=== PATIENT | female | born 1960 | race Caucasian/White ===

== ENCOUNTER 2019-02-20 05:48 | Day surgery (SDC) | payer MEDICAID ==
[2019-02-20] MEDS ORDERED: Povidone-Iodine 10% Soln 118.25 ML Bottle ONE (06:46)
[2019-02-20] MEDS: Nozin Nasal Sanitizer NASBOTH SCH ×3 (06:59→20:41)
[2019-02-20] MEDS: Lactated Ringers 1,000 ML IV SCH ×2 (06:59→23:50)
[2019-02-20] MEDS ORDERED: Midazolam 1 MG/ML 2 ML SDV ONE (07:29)
[2019-02-20] MEDS ORDERED: Propofol 200 MG/20 ML SDV ONE ×3 (07:29→08:49)
[2019-02-20] MEDS ORDERED: fentaNYL 100 MCG/2 ML SDV ONE (07:29)
[2019-02-20] MEDS ORDERED: ceFAZolin 2 GM in Premix Bag 1 BAG IV ONE (07:30)
[2019-02-20] MEDS ORDERED: ceFAZolin 2 GM in Sodium Chloride 0.9% 50 ML IV ONE (07:30)
[2019-02-20] MEDS ORDERED: Lactated Ringers 1,000 ML ONE (09:03)
[2019-02-20] MEDS ORDERED: Sodium Chloride 0.9% 1,000 ML IV SCH (09:30)
[2019-02-20] MEDS ORDERED: Acetaminophen 325 MG Tab PO PRN (09:30)
[2019-02-20] MEDS ORDERED: Docusate Sodium 100 MG Cap PO PRN (09:30)
[2019-02-20] MEDS ORDERED: Magnesium Hydroxide 400 MG/5 ML Susp 30 ML Cup PO PRN (09:30)
[2019-02-20] MEDS ORDERED: Acetaminophen/HYDROcodone 325-5 MG Tab PO PRN (09:30)
[2019-02-20] MEDS ORDERED: Nitroglycerin 0.4 MG Tab.SL SL PRN (09:45)
[2019-02-20] MEDS: Acetaminophen/oxyCODONE 325-5 MG Tab PO PRN ×4 (11:34→23:25)
--- NOTE | 2019-02-20 12:30 | CR ---
Knee 1V or 2V Rt: 02/20/2019 9:36 AM INDICATION: Status post right unicompartmental knee arthroplasty COMPARISON: 03/21/2018. TECHNIQUE: 2 views of the right knee FINDINGS: Interval changes of unicompartmental arthroplasty in the medial compartment are present without apparent hardware complication or periprosthetic fracture. Expected postsurgical changes are present, including subcutaneous emphysema and air and fluid in the joint capsule. Moderate osteoarthritis is noted in the remaining compartments. IMPRESSION: Interval changes of unicompartmental arthroplasty in the medial compartment without complication.
[2019-02-20] MEDS: Morphine 2 MG/ML Syringe IVPUSH PRN ×3 (12:37→14:51)
[2019-02-20] MEDS: Sertraline 25 MG Tab PO SCH (13:58)
[2019-02-20] MEDS: Spironolactone 25 MG Tab PO SCH (13:58)
[2019-02-20] MEDS: ceFAZolin 1 GM in Premix Bag 1 BAG IV SCH ×2 (15:39→23:25)
[2019-02-20] MEDS: Metoprolol Tartrate 25 MG Tab PO SCH (20:40)
[2019-02-20] MEDS ORDERED: Metoprolol Succinate 25 MG Tab.ER PO SCH (21:00)
--- NOTE | 2019-02-21 04:15 | OR ---
DATE OF PROCEDURE: 02/20/2019 SURGEON: Hugo Shankar MD PREOPERATIVE DIAGNOSIS: Osteoarthritis, right knee, medial compartment. POSTOPERATIVE DIAGNOSIS: Osteoarthritis, right knee, medial compartment. PROCEDURE: Right medial unicompartmental arthroplasty using [employer] ZUK components with a size E femur, size 3 tibia, and 10 mm poly. ANESTHESIA: Spinal with sedation. INDICATIONS: Aviva is a 58-year-old female with a history of progressive pain in her right knee for the past several months. She has previously had arthroscopic partial meniscectomy. She never got complete pain relief with this and has actually gotten progressively more pain, particularly in the last couple of months. Comparison of x-rays before and after arthroscopy revealed progressive collapse of the medial compartment, and MRI confirms degenerative changes with well-preserved patellofemoral compartment and intact articular cartilage laterally. She now presents for a medial unicompartmental arthroplasty. Risks, benefits, and potential complications of the procedure were discussed. DESCRIPTION OF PROCEDURE: After adequate anesthesia was obtained, the patient was placed supine with the tourniquet about the right upper thigh. Right leg was prepped and draped in sterile fashion. Leg was exsanguinated and tourniquet inflated to 300 mmHg. A longitudinal incision was made just slightly medial of midline from approximately the superior pole of the patella to the tibial tubercle. This was carried down through the subcutaneous tissues. Medial parapatellar arthrotomy was performed up to the insertion of the VMO, which was left intact. Anterior horn of the medial meniscus was excised. The knee was flexed , and this revealed loss of articular cartilage on the medial femoral condyle over the majority of the weightbearing surface. The oscillating saw was used to remove the anterior lip of the tibial plateau. The leg was extended, and the extramedullary alignment jig was then secured. Distal femoral cut was made. This portion was removed. The knee was flexed, and the tibia was then cut using combination of oscillating and reciprocating saws. Remaining meniscus was excised. The femur was sized and the cutting jig secured to the distal femur. Posterior and chamfer cuts were then made along with the holes for the prosthetic pegs. The tibia was then sized to a 3 component. Trial tray was tapped into position and secured with a pin and holes drilled for the pegs. Trial reduction was then done with a 9 mm insert providing full flexion and extension, but just slightly more than 3 mm of a gap in both flexion and extension. Trials were removed. The knee was thoroughly irrigated with pulse lavage. Bone surfaces were dried. The components were then cemented in place. Excess cement was removed. The knee was held in full extension with a 9 mm trial insert and the 2 [address] guide in place with the knee in extension until the cement cured. The knee was again taken through range of motion, and a 10 mm insert was trialed. This provided 2 mm of gap in both flexion and extension and a much better balance. Trials were removed. Knee was irrigated, and the final polyethylene was snapped into position. The knee was irrigated once again. It is also irrigated with a dilute Betadine solution followed by pulse lavage irrigation. Arthrotomy was then closed with a #2 Ethibond in a running locking fashion. The skin was closed with 2-0 Vicryl and running 3-0 Monocryl. Steri-Strips were applied. Light compressive dressing was placed. The patient tolerated the procedure well. There were no complications. Taken from the operating room in stable condition. Hugo Shankar MD /[id number] NATACHA
[2019-02-21] MEDS ORDERED: Non-Formulary Medication 1 Each (Levothyroxine [Levothyroxine] 75 MCG) PO SCH (07:30)
[2019-02-21] MEDS ORDERED: Levothyroxine 25 MCG Tab PO SCH (07:30)
[2019-02-21] MEDS: Acetaminophen/oxyCODONE 325-5 MG Tab PO PRN ×2 (07:49→14:22)
[2019-02-21] MEDS: ceFAZolin 1 GM in Premix Bag 1 BAG IV SCH (08:54)
[2019-02-21] MEDS: Nozin Nasal Sanitizer NASBOTH SCH (08:55)
[2019-02-21] MEDS: Furosemide 40 MG Tab PO SCH ×2 (08:56→09:27)
[2019-02-21] MEDS: Spironolactone 25 MG Tab PO SCH (08:58)
[2019-02-21] MEDS ORDERED: Non-Formulary Medication 1 Each (Atorvastatin [Lipitor] 80 MG) PO SCH (09:00)
[2019-02-21] MEDS ORDERED: Aspirin 81 MG Tab.EC PO SCH (09:00)
[2019-02-21] MEDS ORDERED: metFORMIN 500 MG Tab PO SCH (09:00)
[2019-02-21] MEDS ORDERED: atorvaSTATin 20 MG Tab PO SCH (09:00)
[2019-02-21] MEDS ORDERED: Ezetimibe 10 MG Tab PO SCH (09:00)
[2019-02-21] MEDS: Metoprolol Tartrate 25 MG Tab PO SCH (09:23)
[2019-02-21] MEDS: Sertraline 25 MG Tab PO SCH (09:24)
== END 2019-02-21 14:48 | disposition home or self-care (01) ==
LOC: JP.SDS 05:48 → JP.MS 09:30 → JP.SDS 02-21 14:48
PROVIDERS: ATTEND Specialist
DX: M17.11 Unilateral primary osteoarthritis, right knee (principal); K21.9 Gastro-esophageal reflux disease without esophagitis; I25.10 Atherosclerotic heart disease of native coronary artery without angina pectoris; I10 Essential (primary) hypertension; E78.5 Hyperlipidemia, unspecified; E03.9 Hypothyroidism, unspecified; E66.9 Obesity, unspecified; G47.33 Obstructive sleep apnea (adult) (pediatric); Z99.89 Dependence on other enabling machines and devices; Z68.38 Body mass index [BMI] 38.0-38.9, adult; Z79.84 Long term (current) use of oral hypoglycemic drugs; Z79.899 Other long term (current) drug therapy; Z79.82 Long term (current) use of aspirin; Z91.018 Allergy to other foods; Z91.048 Other nonmedicinal substance allergy status
CPT/HCPCS: 27446; 73560; 97110; 97116; 97161; 97165; 97530; A9270; C1713; C1776; J0690; J2250; J2270; J2704; J3010; J7030; J7050; J7120